=== PATIENT | female | born 1965 | race Caucasian/White ===

== ENCOUNTER → 2017-12-07 | Outpatient (CLI) | payer MEDICARE, OTHER ==
[~2017-12-07] MED LIST: ACYC800T PO; DEXL60CA5 PO; DIAZ-345 PO; DIAZ10TA PO; DICL/MIS50 PO; FLUO20CA25 PO; FLUO40CA PO; FOLI0.4T2 PO; GABA300C PO; HORMONE PATCH; LEVO500T69 PO; METO25TA2 PO; METO50TA7 PO; MTP25TSR PO; PNT40TEC PO; POTA10CA43 PO; SUCR1TAB23 PO; TOPI25TA2 PO; TRAZ-144 PO; TRAZADONE PO
--- NOTE | 2017-12-07 10:51 | Diagnostic Imaging Report ---
INDICATION: Routine screening. Comparison is made with prior mammogram from 09/24/2014. The current study was also evaluated with a Computer Aided Detection (CAD) system. Bilateral breast implants are noted. Implant contours appear smooth. There is moderate breast parenchymal density present. The parenchymal pattern appears to be stable. There is a probable lymph node in the region of axillary tail on the right. No malignant-appearing micro-calcifications are seen. The axillae are unremarkable. IMPRESSION: BI-RAD category 2 No mammographic features suspicious for malignancy are identified. ACR BI-RADS Category 2: Benign findings. Result letter will be mailed to the patient. Note: At least 10% of breast cancer is not imaged by mammography. Dictated by: Dictated on workstation # [id number]
== END ==
LOC: RAD 09:21
PROVIDERS: ATTEND Family Medicine
DX: Z12.31 Encounter for screening mammogram for malignant neoplasm of breast (principal)
CPT/HCPCS: 77067

== ENCOUNTER → 2019-05-15 | Outpatient (CLI) | payer MEDICARE, OTHER ==
[~2019-05-15] MED LIST changes: +HOLD METFORMIN - RECEIVED CONTRAST 20 ML VIAL IV SCH; +IOHEXOL 350 MG/ML 100 ML (OMNIPAQUE 350) VIAL IV ONE; +NS 100 ML (IVPB) BAG IV ONE
--- NOTE | 2019-05-15 17:13 | Diagnostic Imaging Report ---
PROCEDURE: CT abdomen with and without contrast. TECHNIQUE: Multiple contiguous axial CT images of the abdomen were obtained prior to and after intravenous administration of iodinated contrast. Auto Exposure Controls were utilized during the CT exam to meet ALARA standards for radiation dose reduction. DATE: May 15, 2019. INDICATION: 54-year-old female, abdominal pain. Nausea and diarrhea. History of pancreatitis. COMPARISON: Ultrasound October 15, 2014. CT abdomen and pelvis June 19, 2012. FINDINGS: The visualized portions of the lung bases are clear. The heart is not enlarged. There is no pericardial effusion. The liver is normal in size and contour. There is no identified liver lesion. The main, right, and left portal veins are patent. The patient is status post cholecystectomy. There is pneumobilia. There is no intrahepatic or extrahepatic bile duct dilation. The main pancreatic duct is not abnormally dilated. There is no evidence of acute pancreatitis. There are no imaging findings to specifically suggest chronic pancreatitis. The spleen is normal in size. The adrenal glands are unremarkable. Unremarkable appearance of the renal parenchyma. The urinary collecting systems are not distended. There is at least moderate volume colonic stool. The imaged segments of the intestinal tract are not distended. There is no free intraperineal air. There is no drainable fluid collection. There is no free fluid in the abdomen. There are atherosclerotic calcifications. There is no identified acute bony abnormality. IMPRESSION: 1. No evidence of acute pancreatitis or other acute abnormality in the abdomen. Dictated by: Dictated on workstation # [id number]
== END ==
LOC: RAD 15:35
PROVIDERS: ATTEND Family Medicine
DX: R10.9 Unspecified abdominal pain (principal); R11.0 Nausea; R19.7 Diarrhea, unspecified; Z90.49 Acquired absence of other specified parts of digestive tract
CPT/HCPCS: 74170

== ENCOUNTER → 2019-12-01 | Outpatient (CLI) | payer MEDICARE, OTHER ==
[~2019-12-01] MED LIST changes: -HOLD METFORMIN - RECEIVED CONTRAST 20 ML VIAL IV SCH; -IOHEXOL 350 MG/ML 100 ML (OMNIPAQUE 350) VIAL IV ONE; -NS 100 ML (IVPB) BAG IV ONE
--- NOTE | 2019-12-01 12:14 | Diagnostic Imaging Report ---
INDICATION: Routine screening. Comparison is made with prior mammogram 12/07/2017 and 09/24/2014. 2-D and 3-D bilateral screening mammography was performed with CAD. Bilateral subpectoral breast implants are again noted. Implant contours appear smooth. Cardiac monitoring device overlies the medial left breast. Scattered fibroglandular tissue is seen bilaterally. Intraparenchymal lymph node in the axillary tail on the right is again noted. Stable. No new mass or malignant appearing microcalcifications are seen. IMPRESSION: BI-RADS Category 2 No mammographic features suspicious for malignancy are identified. ACR BI-RADS Category 2: Benign findings. Result letter will be mailed to the patient. Note: At least 10% of breast cancer is not imaged by mammography. Dictated by: Dictated on workstation # [id number]
== END ==
LOC: RAD 09:00
PROVIDERS: ATTEND Family Medicine
DX: Z12.31 Encounter for screening mammogram for malignant neoplasm of breast (principal)
CPT/HCPCS: 77067

== ENCOUNTER → 2021-10-30 | Outpatient (CLI) | payer MEDICARE, OTHER ==
--- NOTE | 2021-10-30 09:49 | Diagnostic Imaging Report ---
EXAMINATION: US Thyroid. TECHNIQUE: Multiple real-time grayscale images were obtained of the thyroid in various projections. HISTORY: ENLARGED THYROID,R SIDE COMPARISON: 07/09/2015 FINDINGS: The right lobe of the thyroid measures 4.1 x 1.4 x 1.4 cm. The right lobe is homogeneous without focal nodule. The left lobe of the thyroid measures 4.4 x 1.2 x 1.5 cm. The left lobe is homogeneous without focal nodule. The isthmus is normal and measures 0.2 cm. No suspicious adenopathy within the visualized neck. IMPRESSION: 1. Normal thyroid gland. TIRADS 1: Benign No FNA or follow-up required TIRADS 2: Not Suspicious No FNA or follow-up required TIRADS 3: Mildly Suspicious FNA if ? 2.5 cm Follow if ? 1.5 cm (At 1, 3 and 5 years from initial scan) TIRADS 4: Moderately Suspicious FNA if ? 1.5 cm Follow if ? 1 cm (At 1, 2, 3 and 5 years from initial scan) TIRADS 5: Highly Suspicious FNA if ? 1 cm Follow if ? 0.5 cm (Annually for 5 years from initial scan) Dictated by: Dictated on workstation # [id number]
== END ==
LOC: RAD 08:30
PROVIDERS: ATTEND Nurse Practitioner Family
DX: E04.9 Nontoxic goiter, unspecified (principal)
CPT/HCPCS: 76536

== ENCOUNTER → 2023-10-04 | Outpatient (CLI) | payer MEDICARE, OTHER ==
--- NOTE | 2023-10-04 11:08 | Diagnostic Imaging Report ---
INDICATION: Cough, unspecified R05.9. COMPARISON: None. FINDINGS: Frontal and lateral views of the chest demonstrate normal heart size and pulmonary vascularity. The lungs are clear. There are no signs of infiltrate, pleural effusions, or pneumothoraces. The visualized osseous structures show no acute abnormalities. IMPRESSION: No acute process. No signs of infiltrates, effusions, or pneumothoraces. Dictated by: Dictated on workstation # [id number]
--- NOTE | 2023-10-05 14:47 | Diagnostic Imaging Report ---
Indication: Routine screening. Comparison is made with prior mammogram 12/01/2019 and 12/07/2017. 2-D and 3-D bilateral screening mammography was performed with CAD. The current study was also evaluated with a Computer Aided Detection (CAD) system. Bilateral subpectoral breast implants again noted. Contours remain smooth. There is no evidence of extracapsular rupture. The cardiac loop recorder overlies the medial left breast. Scattered fibroglandular tissues are identified bilaterally. The parenchymal pattern is stable. No mass or malignant-appearing microcalcifications are identified. Axillae are unremarkable. IMPRESSION: BI-RADS Category 2 No mammographic features suspicious for malignancy are identified. ACR BI-RADS Category 2: Benign findings. Result letter will be mailed to the patient. Note: At least 10% of breast cancer is not imaged by mammography. Dictated by: Dictated on workstation # [id number]
== END ==
LOC: RAD 09:17
PROVIDERS: ATTEND Family Medicine
DX: Z12.31 Encounter for screening mammogram for malignant neoplasm of breast (principal); R05.9 Cough, unspecified
CPT/HCPCS: 71046; 77063; 77067